=== PATIENT | female | born 1990 | race Two or more races ===

== ENCOUNTER 2016-11-28 09:17 | Day surgery (SDC) | payer BC ==
[2016-11-27 11:54] VITALS: BMI 34.4
[2016-11-28] VITALS (12 sets, daily range): BP systolic 98–109; BP diastolic 48–58; PULSE 25–77; RESP 14–22; Ht 152.4 cm; Wt 78.0 kg
[~2016-11-28] VITALS: Ht 152.4 cm; Wt 78.0 kg
[2016-11-28] MEDS ORDERED: CEFAZOLIN 2 GM/50 ML (PMX) 50 ML IVPB ONE (09:30)
[2016-11-28] MEDS ORDERED: SOD CHLORIDE 0.9% 1,000 ML IV SCH (09:30)
[2016-11-28] MEDS ORDERED: BUPIVACAINE 0.25% (MPF) 30 ML INJ ONE (10:29)
[2016-11-28] MEDS ORDERED: ROCURONIUM 50 MG INJ ONE (11:16)
[2016-11-28] MEDS ORDERED: METOCLOPRAMIDE 10 MG INJ ONE (11:16)
[2016-11-28] MEDS ORDERED: ONDANSETRON 4 MG INJ ONE (11:16)
[2016-11-28] MEDS ORDERED: FENTAnyl 50 MCG/ML VIAL ONE (11:16)
[2016-11-28] MEDS ORDERED: PROPOFOL 20 ML ONE (11:16)
[2016-11-28] MEDS ORDERED: SUCCINYLCHOLINE CHLORIDE 100 MG/5 ML SYG IV ONE (11:16)
[2016-11-28] MEDS ORDERED: CEFAZOLIN 1 GM INJ ONE (11:19)
[2016-11-28] MEDS ORDERED: BUPIVACAINE 0.25% (MPF) 30 ML INJ INJ ONE (11:53)
[2016-11-28] MEDS ORDERED: HYDROmorphONE (0.2 MG/ML) 10ML SYG IV PRN ×2 (12:00)
[2016-11-28] MEDS ORDERED: MEPERIDINE 25 MG INJ IV PRN (12:00)
[2016-11-28] MEDS ORDERED: ONDANSETRON 4 MG INJ IV PRN (12:00)
[2016-11-28] MEDS ORDERED: FENTAnyl 50 MCG/ML VIAL IV PRN ×2 (12:00)
[2016-11-28] MEDS: HYDROmorphONE (0.2 MG/ML) 10ML SYG IV PRN ×2 (12:30→12:38)
[2016-11-28] MEDS ORDERED: HYDROCODONE/APAP (5/325) TAB PO ONE (12:30)
--- NOTE | 2016-11-28 14:29 | OPR ---
DATE OF OPERATION: 11/28/2016 INDICATION: This is a 25-year-old female with a right posterior neck mass. She requests surgical e xcision. Risks, alternatives, benefits, and personnel were discussed with the patient. The patient expressed understanding and consents to the operation. PREOPERATIVE DIAGNOSIS: Right posterior neck mass. POSTOPERATIVE DIAGNOSIS: Right posterior neck mass. OPERATION PERFORMED: 1. Excision of right posterior neck mass with 6 cm size incision and 5 cm size mass. 2. Localized adjacent tissue transfer with the use of skin flaps. SURGEON: Carissa Mullins MD SPECIMEN: Right posterior neck mass. COMPLICATIONS: None. ANESTHESIA: General. PROCEDURE: The patient was taken to the OR, prepped and draped in the usual sterile fashion. Surgi kathleen timeout was performed. IV antibiotics were given. Transverse incision was made over the right posterior neck mass with a 15 blade. Dissection cautery was carried down circumferentially around t he mass and circumferentially excised. There was good hemostasis. Due to the large tissue defect, localized adjacent tissue transfer with the use of skin flaps was performed. Multilevel closure wit h interrupted 3-0 Vicryl and skin sreekanth. Local anesthesia was injected. Dry dressings were appli ed. Dictated By: CARISSA WILLINGHAM/GO Conf#: [id number] DID#: [id number]
== END 2016-11-28 13:40 | disposition home or self-care (01) ==
LOC: SDS 09:17
PROVIDERS: ATTEND Surgery
DX: L72.0 Epidermal cyst (principal)
CPT/HCPCS: 14040; 84703; 88307; J0330; J0690; J1170; J2405; J2765; J3010; Z7512; Z7610